=== PATIENT | female | born 1940 | race African-American/Black ===

== ENCOUNTER 2017-09-14 04:39 | Emergency (ER) | payer MEDICARE, OTHER ==
[2017-09-14] MEDS ORDERED: ASPIRIN 81 MG TABLET, CHEWABLE PO ONE (05:09)
--- NOTE | 2017-09-14 05:18 | ER Document Report ---
ED Medical Screen (RME) - General Chief Complaint: Chest Pain > 30 Stated Complaint: CHEST PAIN TRAVEL OUTSIDE OF THE [place] IN LAST 30 DAYS: No - HPI Notes: 09/14/17 05:18 Patient is a 77-year-old female with a history of hypertension, hypercholesterolemia, type 2 diabetes, obesity who presents to the ED with daughter complaining of midsternal chest pain that started about an hour ago. Patient states that the pain does not radiate. She has not had any associated shortness of breath, dyspnea, dizziness, or diaphoresis. Patient states that she currently does not feel the pain. She denies any significant cardiopulmonary medical history. Denies any drug allergies. Patient is not on any blood thinners. Denies any prolonged immobilization, recent surgery/trauma , previous DVT/PE, hormone use, or smoking. Denies any headache, fever, neck pain, URI, sore throat, palpitations, syncope, cough, shortness of breath, wheeze, dyspnea, abdominal pain, nausea/vomiting/diarrhea, urinary retention, dysuria, hematuria, back pain, or rash. I have treated and performed a rapid initial assessment of this patient. A comprehensive ED assessment and evaluation of the patient, analysis of test results and completion of medical decision making process will be conducted by additional ED providers. PHYSICAL EXAMINATION: GENERAL: Well-appearing, well-nourished and in no acute distress. A&Ox4. Answers questions appropriately. Chest: + tenderness to the chest wall, correlates with pain described. No flail chest. LUNGS: Breath sounds clear to auscultation bilaterally and equal. No wheezes rales or rhonchi. HEART: Regular rate and rhythm without murmurs, rubs, gallops. ABDOMEN: Soft, nondistended abdomen. No guarding, no rebound. No masses appreciated. Normal bowel sounds present. No CVA tenderness bilaterally. Non- tender. Extremities: Trace pitting edema b/l. NEUROLOGICAL: Normal speech. PSYCH: Normal mood, normal affect. Physical Exam - Vital signs Vitals: Temp Pulse Resp BP Pulse Ox 98.4 F 93 16 155/109 H 99 09/14/17 04:55 09/14/17 04:55 09/14/17 04:55 09/14/17 04:55 09/14/17 04:55 Course - Vital Signs Vital signs: Temp Pulse Resp BP Pulse Ox 98.4 F 93 16 155/109 H 99 09/14/17 04:55 09/14/17 04:55 09/14/17 04:55 09/14/17 04:55 09/14/17 04:55
[2017-09-14 05:27] LABS: ABSOLUTE BASOPHILS # (AUTO) 0.1 10^3/uL (0.0-0.2); ABSOLUTE EOSINOPHILS # (AUTO) 0.1 10^3/uL (0.0-0.6); ABSOLUTE LYMPHOCYTES (AUTO) 3.1 10^3/uL (0.5-4.7); ABSOLUTE MONOCYTES (AUTO) 0.9 10^3/uL (0.1-1.4); ABSOLUTE NEUT (AUTO) 5.4 10^3/uL (1.7-8.2); BASOPHILS % (AUTO) 0.6 % (0-2); EOSINOPHILS % (AUTO) 1.1 % (0-6); HEMATOCRIT 39.8 % (36.0-47.0); LYMPHOCYTES % (AUTO) 32.5 % (13-45); MEAN CORPUSCULAR HEMOGLOBIN 26.9 pg (27.0-33.4); MEAN CORPUSCULAR HGB CONC 32.7 g/dL (32.0-36.0); MEAN CORPUSCULAR VOLUME 82 fl (80-97); MONOCYTES % (AUTO) 9.4 % (3-13); PLATELET COUNT 341 10^3/uL (150-450); RED BLOOD COUNT 4.82 10^6/uL (3.72-5.28); RED CELL DISTRIBUTION WIDTH 16.2 % (11.5-14.0); SEGMENTED NEUTROPHILS % (AUTO) 56.4 % (42-78); TOTAL CELLS COUNTED % (AUTO) 100 %; WHITE BLOOD COUNT 9.6 10^3/uL (4.0-10.5)
[2017-09-14 05:42] LABS: ALANINE AMINOTRANSFERASE 33 U/L (9-52); ALBUMIN 4.3 g/dL (3.5-5.0); ALKALINE PHOSPHATASE 56 U/L (38-126); ANION GAP 11 (5-19); ASPARTATE AMINO TRANSFERASE 35 U/L (14-36); BILIRUBIN,DIRECT 0.4 mg/dL (0.0-0.4); BILIRUBIN,TOTAL 0.4 mg/dL (0.2-1.3); BLOOD UREA NITROGEN 18 mg/dL (7-20); CALCIUM 9.9 mg/dL (8.4-10.2); CARBON DIOXIDE 26 mmol/L (22-30); CHLORIDE 106 mmol/L (98-107); GLUCOSE 143 mg/dL (75-110); POTASSIUM 4.2 mmol/L (3.6-5.0); SODIUM 143.3 mmol/L (137-145); TOTAL PROTEIN 7.9 g/dL (6.3-8.2)
[2017-09-14 05:54] LABS: NT PRO BNP 60 pg/mL (<450)
[2017-09-14 05:56] LABS: TROPONIN I < 0.012 ng/mL
--- NOTE | 2017-09-14 06:07 | ER Document Report ---
ED Cardiac - General Chief Complaint: Chest Pain > 30 Stated Complaint: CHEST PAIN Time Seen by Provider: 09/14/17 05:19 Notes: 77-year-old female patient emergency department with chest pain. States it woke her from sleep. Never has had this happen before. Located in the central portion of the chest. States that recently she has been having some intermittent pain in the left shoulder as well. No shortness of breath. Patient here from out of town visiting family. Normally lives in [place]. States that she has hypertension, diabetes, hyperlipidemia, does not smoke. On appropriate medications. Does not take aspirin. Denies any significant lower extremity leg pain or edema. Symptoms began approximately 4 AM. Cannot get comfortable. Denies any recent changes in activity. No heavy lifting. No change in physical activity. States that she had a stress test approximately 2 years ago in [place] which was reportedly normal. No prior history of DVT or pulmonary embolism. Not on blood thinners at this time. TRAVEL OUTSIDE OF THE [place] IN LAST 30 DAYS: No - HPI Patient complains to provider of: Chest pain. denies: Chest tightness, Palpitations, Shortness of breath Quality of pain: None - Related Data Allergies/Adverse Reactions: codeine Allergy (Verified 09/14/17 07:26) Past Medical History - General Information source: Patient - Social History Smoking Status: Former Smoker Chew tobacco use (# tins/day): No Frequency of alcohol use: None Drug Abuse: None Lives with: Family Family History: Reviewed & Not Pertinent Patient has suicidal ideation: No Patient has homicidal ideation: No - Past Medical History Cardiac Medical History: Reports: Hx Hypercholesterolemia, Hx Hypertension Endocrine Medical History: Reports: Hx Diabetes Mellitus Type 2 Renal/ Medical History: Denies: Hx Peritoneal Dialysis Review of Systems - Review of Systems Constitutional: denies: Fever, Malaise, Weakness EENT: denies: Blurred vision, Difficulty swallowing, Mouth pain Cardiovascular: Chest pain. denies: Palpitations, Heart racing, Orthopnea, Dizziness, Lightheaded, Edema Respiratory: denies: Cough, Hurts to breathe, Short of breath, Wheezing Gastrointestinal: denies: Abdominal pain, Diarrhea, Nausea, Vomiting Genitourinary: denies: Burning, Dysuria, Discharge Musculoskeletal: denies: Back pain, Gout, Joint pain, Muscle pain Skin: denies: Change in color, Dryness, Lesions, Lumps, Rash Hematologic/Lymphatic: denies: Anemia, Blood clots, Easy bleeding, Easy bruising Neurological/Psychological: denies: Confusion, Weakness, Numbness Physical Exam - Vital signs Vitals: Temp Pulse Resp BP Pulse Ox 98.4 F 93 16 155/109 H 99 09/14/17 04:55 09/14/17 04:55 09/14/17 04:55 09/14/17 04:55 09/14/17 04:55 Interpretation: Normal - General General appearance: Appears well, Alert - HEENT Head: Normocephalic, Atraumatic Eyes: Normal Pupils: PERRL - Respiratory Respiratory status: No respiratory distress Chest status: Nontender Breath sounds: Normal Chest palpation: Normal - Cardiovascular Rhythm: Regular Heart sounds: Normal auscultation Murmur: No Notes: Mild chest pain with palpation of the left sternal costal margins. - Abdominal Inspection: Normal Distension: No distension Bowel sounds: Normal Tenderness: Nontender Organomegaly: No organomegaly - Back Back: Normal, Nontender - Extremities General upper extremity: Normal inspection, Nontender, Normal color, Normal ROM , Normal temperature General lower extremity: Normal inspection, Nontender, Normal color, Normal ROM , Normal temperature, Normal weight bearing. No: Doris's sign - Neurological Neuro grossly intact: Yes Cognition: Normal Orientation: AAOx4 [place] Coma Scale Eye Opening: Spontaneous Abi Coma Scale Verbal: Oriented [place] Coma Scale Motor: Obeys Commands Bai Coma Scale Total: 15 Speech: Normal Motor strength normal: LUE, RUE, LLE, RLE Sensory: Normal - Psychological Associated symptoms: Normal affect, Normal mood - Skin Skin Temperature: Warm Skin Moisture: Dry Skin Color: Normal, Other - No obvious rash Course - Re-evaluation Re-evalutation: 09/14/17 06:59 Chest x-ray slightly abnormal recommending CT scan. Will image the chest at this time. Will repeat troponin. Will reassess. No evidence at this time of significant myocardial injury or infarction. 09/14/17 07:35 CT scan confirmed hiatal hernia but also reveals a thyroid mass. Thyroid ultrasound ordered. Will repeat troponin at 4 hour guzman. Will reassess. 09/14/17 10:32 Cardiac troponin negative 2. Ultrasound reveals large thyroid mass. On CT scan he can actually see that this mass goes down to the left sternal area and clavicle sternal junction. When palpating this area it actually hurts. Likely a lot of her pain is coming from the thyroid mass. Patient was advised that she needs a fine-needle biopsy to rule out malignancy. She has had this done before. States that it was not cancer. Patient is here visiting from out of town. Absolutely refusing to be admitted to the hospital. 3 family members are present and witnessed conversation as well. At this time with negative EKG , cardiac labs 2 and other potential explanation for the pain feel comfortable letting her go home but strict warning signs were given that if symptoms are getting worse she should return immediately. Laboratory 09/14/17 09/14/17 09/14/17 05:17 05:17 05:17 WBC 9.6 RBC 4.82 Hgb 13.0 Hct 39.8 MCV 82 MCH 26.9 L MCHC 32.7 RDW 16.2 H Plt Count 341 Seg Neutrophils % 56.4 Lymphocytes % 32.5 Monocytes % 9.4 Eosinophils % 1.1 Basophils % 0.6 Absolute Neutrophils 5.4 Absolute Lymphocytes 3.1 Absolute Monocytes 0.9 Absolute Eosinophils 0.1 Absolute Basophils 0.1 Sodium 143.3 Potassium 4.2 Chloride 106 Carbon Dioxide 26 Anion Gap 11 BUN 18 Creatinine 0.78 Est GFR ( Amer) > 60 Est GFR (Non-Af Amer) > 60 Glucose 143 H Calcium 9.9 Total Bilirubin 0.4 Direct Bilirubin 0.4 Neonat Total Bilirubin Not Reportable Neonat Direct Bilirubin Not Reportable Neonat Indirect Bili Not Reportable AST 35 ALT 33 Alkaline Phosphatase 56 Troponin I < 0.012 NT-Pro-B Natriuret Pep 60 Total Protein 7.9 Albumin 4.3 09/14/17 09:15 WBC RBC Hgb Hct MCV MCH MCHC RDW Plt Count Seg Neutrophils % Lymphocytes % Monocytes % Eosinophils % Basophils % Absolute Neutrophils Absolute Lymphocytes Absolute Monocytes Absolute Eosinophils Absolute Basophils Sodium Potassium Chloride Carbon Dioxide Anion Gap BUN Creatinine Est GFR ( Amer) Est GFR (Non-Af Amer) Glucose Calcium Total Bilirubin Direct Bilirubin Neonat Total Bilirubin Neonat Direct Bilirubin Neonat Indirect Bili AST ALT Alkaline Phosphatase Troponin I < 0.012 NT-Pro-B Natriuret Pep Total Protein Albumin Chest X-Ray 09/14/17 05:09 IMPRESSION: Hiatal hernia pattern; differential diagnosis includes other neoplasm. Recommend comparison to prior exams or further evaluation with contrast CT of the chest. Thyroid Ultrasound 09/14/17 07:34 IMPRESSION: Dominant dumbbell-shaped mass left lower pole thyroid gland. Fine- needle aspiration should be considered. 09/14/17 10:34 - Vital Signs Vital signs: Temp Pulse Resp BP Pulse Ox 98.0 F 93 13 134/62 H 99 09/14/17 09:02 09/14/17 04:55 09/14/17 10:01 09/14/17 10:01 09/14/17 10:01 - Laboratory Result Diagrams: 09/14/17 05:17 09/14/17 05:17 Laboratory results interpreted by me: 09/14/17 09/14/17 05:17 05:17 MCH 26.9 L RDW 16.2 H Glucose 143 H - EKG Interpretation by Me EKG shows normal: Sinus rhythm, [place] - borderline LAD, Intervals, QRS Complexes , ST-T Waves Discharge - Discharge Clinical Impression: Chest pain in adult, Thyroid mass of unclear etiology Condition: Good Disposition: HOME, SELF-CARE Instructions: Chest Pain of Unclear Cause ([facility]) Additional Instructions: It is unclear why you are having chest pain today. You were offered admission to the hospital but you have declined that. It is very important that you understand that we cannot definitively know if you are having significant heart issues without doing further testing and observation. It will be very important that if symptoms get worse that you return. Also, we found a mass on her thyroid. As discussed, this will need close follow-up. Please see your doctor soon as possible.
--- NOTE | 2017-09-14 06:18 | RADIOLOGY REPORT (SQ) ---
EXAM DESCRIPTION: XR CHEST 1 VIEW COMPLETED DATE/TME: 09/14/2017 05:09 CLINICAL HISTORY: 77 years Female, chest pain COMPARISON: None. NUMBER OF VIEWS/TECHNIQUE: 1/AP FINDINGS: Adequate lung volume, clear parenchyma, normal cardiac silhouette, possible hiatal hernia, and intact bony thorax. IMPRESSION: Hiatal hernia pattern; differential diagnosis includes other neoplasm. Recommend comparison to prior exams or further evaluation with contrast CT of the chest.
--- NOTE | 2017-09-14 07:10 | RADIOLOGY REPORT (SQ) ---
EXAM DESCRIPTION: CT CHEST WITH IV CONTRAST COMPLETED DATE/TME: 09/14/2017 06:34 CLINICAL HISTORY: 77 years Female, chest pain, abnormal cxr Comparison: None. Technique: IV contrast. Coronal and sagittal reformat. This exam was performed according to our departmental dose-optimization program, which includes automated exposure control, adjustment of the mA and/or kV according to patient size and/or use of iterative reconstruction technique.[facility]: Dose Right [facility]: CareDose [facility]: Dose Right [facility]: Teradose 4D [facility]: [employer] LIMITATIONS: None Findings: Left thyroid mass partially imaged measures at least 5.4 cm; thyroid ultrasound recommended. Small atelectasis or scar bilateral lower lobes. Moderate hiatal hernia. Small coronary arterial calcification.Moderate disc desiccation, axillae, mediastinum, lungs, airway, lymphatics, heart, vasculature, upper abdomen, and musculoskeleton appear otherwise unremarkable. Impression: 1. Indeterminate left thyroid mass measures at least 5.4 cm; thyroid ultrasound recommended. 2. No acute cardiopulmonary findings. Moderate hiatal hernia.
--- NOTE | 2017-09-14 09:36 | RADIOLOGY REPORT (SQ) ---
EXAM DESCRIPTION: U/S THYROID/SFT TISS HD NECK COMPLETED DATE/TIME: 09/14/2017 9:09 am REASON FOR STUDY: thyroid mass COMPARISON: CT chest with IV contrast 09/14/2017 TECHNIQUE: Dynamic and static rios-scale images acquired of the thyroid gland. Selected additional c olor/power Doppler images recorded. All images stored to PACS. LIMITATIONS: None. FINDINGS: RIGHT LOBE: Right lobe thyroid is 3.6 x 1.1 x 1.3 cm in size. A 5 mm nodule is present in the right upper pole thyroid. 1.8 cm nodule right midpole gland. LEFT LOBE: The left lobe thyroid measures about 6 by 4 x 3 cm in size. There is a dominant mass in t he mid and lower pole thyroid gland which is dumbbell-shaped. The superior portion of the nodule vipin sures about 3 x 3 cm in size, inferior portion of the nodule about 4 x 5 cm in size, extending down t o the thoracic inlet. ISTHMUS: Normal size. Homogeneous echotexture. No cystic or solid masses. OTHER: No other significant finding. IMPRESSION: Dominant dumbbell-shaped mass left lower pole thyroid gland. Fine-needle aspiration lorenzo uld be considered. TECHNICAL DOCUMENTATION: JOB ID: [id number] [employer].- All Rights Reserved Reading location - IP/workstation name: [email or web address]
--- NOTE | 2017-09-14 09:38 | EKG REPORT ---
SEVERITY:- BORDERLINE ECG - SINUS RHYTHM BORDERLINE LEFT AXIS DEVIATION BORDERLINE T WAVE ABNORMALITIES : Confirmed by: Jannet Soler 14-Sep-2017 09:38:23
[2017-09-14 10:18] VITALS: BP 134/62
== END 2017-09-14 10:40 | disposition home or self-care (01) ==
LOC: ER 04:39
DX: R07.9 Chest pain, unspecified (principal); E07.89 Other specified disorders of thyroid; K44.9 Diaphragmatic hernia without obstruction or gangrene; M25.512 Pain in left shoulder; I10 Essential (primary) hypertension; E11.9 Type 2 diabetes mellitus without complications; Z79.899 Other long term (current) drug therapy; Z88.5 Allergy status to narcotic agent; Z87.891 Personal history of nicotine dependence
CPT/HCPCS: 93005; 99285; 36415; 85025; 80053; 84484; 83880; 71045; 76536; 71260; 93010; A9270